=== PATIENT | male | born 1965 | race Caucasian/White ===

== ENCOUNTER → 2017-07-14 | Outpatient (CLI) | payer BC, OTHER ==
[~2017-07-14] MED LIST: ACHYD1T PO; CYCL5TAB11 PO; DIAZ5TAB3 PO; HYDR-2889 PO; HYDR1CAP2 PO; IBP800T PO; NAPR250T34 PO; NFNEB10T PO; ZLP10T PO
--- NOTE | 2017-07-14 18:08 | Diagnostic Imaging Report ---
PROCEDURE: MRI lumbar spine. TECHNIQUE: Multiplanar, multisequence MRI of the lumbar spine was performed without contrast. INDICATION: No known injury with bilateral leg pain, intermittent over the last 2 years. No priors for direct comparison. The study, however, correlated with CT abdomen and pelvis performed in December 2012 which includes coronal reconstructions. FINDINGS: Lumbar body heights are maintained and their alignment is normal. There is no paravertebral mass, hemorrhage or fluid collection. The conus medullaris appeared unremarkable and dispersal of the nerve roots throughout the cauda equina appeared unremarkable. There is no bone contusion, marrow edema or a fracture pattern. Hemangioma incidentally noted at the L1 vertebral body. No suspicious marrow signal abnormality. L1-L2: There is disc desiccation, circumferential bulge and mild endplate osteophytes but no significant canal, foraminal or recess stenosis. L2-L3 level appeared normal. L3-L4: There is loss of disc stature, disc desiccation and bulging disc material posteriorly effacing and flattening the ventral thecal sac. There is mild facet arthrosis and mild thickening of the ligamenta flava. The findings result in a mild degree of canal stenosis without foraminal or recess stenosis. L4-L5: There is thickened ligamenta flava and facet arthrosis. The disc shows slight circumferential bulge predominantly on the basis of posterior element hypertrophy. There is a mild degree of canal stenosis and mild biforaminal narrowing. L5-S1: There is disc desiccation, loss of disc stature, disc bulge and endplate osteophytes with hypertrophic facet arthrosis. There is a mild degree of spinal canal stenosis with mild biforaminal narrowing. IMPRESSION: Normal alignment. No acute osseous abnormality. Multilevel spondylosis with predominantly mild degrees of canal and foraminal stenoses listed level by level above. No fracture or malalignment. No acute-appearing abnormality. Dictated by: Dictated on workstation # [id number]
--- NOTE | 2017-07-14 19:20 | Diagnostic Imaging Report ---
Two views of the skull. INDICATION: Check for metal in the eyes or brain. FINDINGS: There is no metallic foreign body seen in the orbits or intracranially. Dental fillings are noted. IMPRESSION: No metallic foreign body in the orbits or intracranially. Dictated by: Dictated on workstation # [id number]
== END ==
LOC: RAD 16:33
PROVIDERS: ATTEND Nurse Practitioner Community Health
DX: M48.07 Spinal stenosis, lumbosacral region (principal)
CPT/HCPCS: 70250; 72148